=== PATIENT | female | born 1965 | race Caucasian/White ===

== ENCOUNTER → 2021-10-22 | Outpatient (CLI) | payer OTHER ==
[~2021-10-22] MED LIST: ATORVASTATIN CA10 MG PO; BENADRYL ALLERG25 MG PO; BUSPIRONE HCL5 MG PO; CYMBALTA 30 MG30 MG PO; DULOXETINE HCL60 MG PO; JARDIANCE10 MG PO; LEVOTHYROXINE50 MC1 PO; LISINOPRIL20 MG PO; MELATONIN10 M2 PO; MOBIC15 MG PO; NEURONTIN600 MG PO; NORVASC10 MG PO; PROTONIX 40 MG40 M1 PO; TYLENOL EXTRA500 MG PO; VICTOZA 3-0.6 MG/0.1 SQ; VITAMIN D21250 MCG PO; WAL-ZYR10 M1 PO
== END ==
LOC: HEART CORB 13:30
DX: I10 Essential (primary) hypertension (principal); R06.02 Shortness of breath; R55 Syncope and collapse; I34.0 Nonrheumatic mitral (valve) insufficiency
CPT/HCPCS: 93306